=== PATIENT | female | born 1935 | race Caucasian/White ===

== ENCOUNTER 2016-05-30 10:37 | Emergency (ER) | payer MEDICARE ==
[2016-05-30 11:36] VITALS: BP 146/70
--- NOTE | 2016-05-30 13:02 | RAD ---
INDICATION: Left orbital injury. TECHNIQUE: 5 views of the orbits were obtained. FINDINGS: The bones are normal alignment. No fracture is seen. The sinuses appear clear. Several surgical clips project over the scalp in the right temporal region. IMPRESSION: NO EVIDENCE FOR FRACTURE.
--- NOTE | 2016-05-30 13:05 | UC ---
Hitesh Rollins Adam, scribed for [facility] on 05/30/16 at 1142 . Laceration HPI - HPI Summary HPI Summary: Nurse's Note: Around 1000 this morning pt sustained injury to corner of LEFT eye. States she was reaching above to grab something on shelf when metal tray fell down and hit corner of LEFT eye- no laceration noted. Denies any loss or change of vision, denies any LOC. Some bruising noted around LEFT eye. Has been icing injury on/off. Also c/o nausea on/off since the injury. In Room: Pt is a 80 year old female presenting with the eye injury described above. She states that she held onto the sink as she was struck by the metal tray and does not believe that she lost consciousness. She realized there was blood and her recommended that she have the injury examined. She currently c/o MARCUS and nausea. She denies diplopia. PMHx includes diverticulitis, arthritis, tonsillectomy, appendectomy, ovarian cysts, and bladder problems. She denies any FMHx. She last saw Dr. Walter (her PCP) prior to 05/20/16 when she had a sore throat (negative strep). - History Of Current Complaint Chief Complaint: UCGeneralIllness Stated Complaint: LAC AROUND EYE Hx Obtained From: Patient Laceration Location: Eye Mechanism Of Injury: Blunt Trauma Onset/Duration: Sudden Onset, Lasting Hours, Still Present Severity: Moderate Aggravating Factors: Nothing - Allergies/Home Medications Allergies/Adverse Reactions: Allergies Allergy/AdvReac Type Severity Reaction Status Date / Time Latex Allergy Intermediate Rash Verified 05/30/16 11:27 Home Medications: Home Medications Hydroxychloroquine TAB* [Plaquenil TAB*] 1 tab DAILY 05/30/16 [History Confirmed 05/30/16] Methotrexate TAB* 4 tab WEEKLY 05/30/16 [History Confirmed 05/30/16] PMH/Surg Hx/FS Hx/Imm Hx Endocrine History Of: Reports: Thyroid Disease - TOOK REPLACEMENTAS CHILD UNTIL OLDER TEEN, NOW OK Denies: Diabetes Cardiovascular History Of: Denies: Hypertension, Pacemaker/ICD Respiratory History Of: Denies: Asthma GI/ History Of: Denies: Renal Disease Cancer History Of: Reports: Breast Cancer - LEFT 2012 - Surgical History Surgical History: Yes Surgery Procedure, Year, and Place: 1940 TONSILLECTOMY:1953 OVARIAN CYST/ APPENDECTOMY:left breast lumpectomy OVARIAN [id number] BREAST BIOPSY benign-BILATERAL CATARACTSATTEMPTED Rt BREAST BIOPSY - UNDER US. Hernia repair 2016 - Family History Known Family History: Positive: Other - Breast CA (Mother) - Social History Occupation: Retired Lives: With Family - Alcohol Use: Occasionally Alcohol Amount: 1 X MONTH Substance Use Type: None Smoking Status (MU): Never Smoked Tobacco Review of Systems Skin: Bruising - Around left eye Gastrointestinal: Other - Nausea Neurological: Headache All Other Systems Reviewed And Are Negative: Yes Physical Exam Triage Information Reviewed: Yes Appearance: Well-Appearing, No Pain Distress, Well-Nourished Vital Signs: Initial Vital Signs Temp 97.6 F 05/30/16 11:30 Pulse 61 05/30/16 11:30 Resp 18 05/30/16 11:30 BP 146/70 05/30/16 11:30 Pulse Ox 100 05/30/16 11:30 Eyes: Positive: Other: - PERRLA, EOMI. 1.5 cm of ecchymosis on the lateral aspect of the upper lid. Swelling and ecchymosis on the lateral aspect below the lower lid. 2.5 cm abrasion lateral to the left eye over the zygoma. There is no limitation of upward gaze. There is tenderness over the zygoma inferiorly. There is no obv injury to the cornea or sclera or globe. No hyphema. Fundi are benign. ENT: Positive: Hearing grossly normal, Pharynx normal, TMs normal. Negative: Muffled/hoarse voice Neck: Positive: Supple, No Lymphadenopathy Respiratory: Positive: Chest non-tender, Lungs clear, Normal breath sounds, No respiratory distress Cardiovascular: Positive: RRR, No Murmur Abdomen Description: Positive: Nontender, No Organomegaly, Soft Bowel Sounds: Positive: Present Musculoskeletal: Positive: Strength Intact, ROM Intact Neurological: Positive: Alert Psychological: Positive: Age Appropriate Behavior Skin: Negative: rashes Diagnostics - Radiology ORBIT X-RAY Xray Interpretation: No Acute Changes Radiology Interpretation Completed By: Radiologist Laceration Course/Dx - Course/Dx Course Of Treatment: MDM: Patient sustained an injury to the lateral aspect of the left orbit. There is no evidence of eye injury or concussion, although the pt does have a MARCUS. X-Rays are negative for fracture. - Differential Dx - Laceration/Wound Differental Diagnoses: Other - Contusion vs eye injury vs concussion Provider Diagnoses: Contusion of the left lateral orbit. Note: I discussed with the patient and her the need for re-evaluation should her vision change or should any symptoms of concussion arise. Patient will rest, use ice to the area, and use ibuprofen or Excedrin. Discharge - Discharge Plan Condition: Stable Disposition: HOME Patient Education Materials: Head Injury (ED), Contusion in Adults (ED) Referrals: Kaushal Walter MD [Primary Care Provider] - Additional Instructions: WE DISCUSSED: 1. Watch for visual problems. 2. Your neurological examination was normal, but I have given you a head injury precaution page. 3. Expect increased bruising over the next few days. 4. Call us with any questions or concerns. 5. Your x ray was normal. The documentation as recorded by the Hitesh damon Adam accurately reflects the service I personally performed and the decisions made by me, Otto Banuelos MD.
== END 2016-05-30 13:36 | disposition home or self-care (01) ==
LOC: UCEAST 10:37
DX: S05.12XA Contusion of eyeball and orbital tissues, left eye, initial encounter (principal); W22.8XXA Striking against or struck by other objects, initial encounter; Y92.9 Unspecified place or not applicable
CPT/HCPCS: 70200; 99211; G0463

== ENCOUNTER 2018-10-07 09:51 | Emergency (ER) | payer MEDICARE ==
--- OUTSIDE RECORDS SUMMARY | 2018-10-07 10:16 | XMS REPORT | Continuity of Care Document ---
:1935 External Reference #:[id number] Author Name Rene Miller M.D. Address [address] [place] [address] Care Team Providers Name Role Phone Helen Alvarado MD/FACP Primary Care Physician Unavailable Payers Date Identification Numbers Payment Provider Subscriber Policy Number: [id number] Medicare - NGS Juanjose Koroma PayID: [id number] [address] [place] [address] Policy Number: [id number] [facility] Juanjose Mica [place] PayID: [id number] [address] [place] [address] Advance Directives Description No Information Available Problems Active Problems Provider Date Diverticulitis Onset: Breast cancer Onset: Rheumatoid arthritis Onset: Primary fibromyalgia syndrome Onset: Osteoarthritis Onset: Vitreous degeneration Anastasia Mesa O.D. Onset: 08/01/2015 Trichiasis of right eyelid Anastasia Mesa O.D. Onset: 08/01/2015 Vertigo Onset: Internal hordeolum Anastasia Mesa O.D. Onset: 08/06/2017 Senile entropion Rene Miller M.D. Onset: 09/12/2016 Tear film insufficiency Rene Miller M.D. Onset: 09/12/2016 Taking medication Rene Miller M.D. Onset: 09/12/2016 Pseudophakia Gabi Cox O.D. Onset: 06/16/2016 Migraine with typical aura Jovana StevensD. Onset: 06/16/2016 Chronic allergic conjunctivitis Anastasia Mesa O.D. Onset: 2015 Epiphora Anastasia Mesa O.D. Onset: 09/12/2015 Family History Date Family Member(s) Observation Comments Father No Current Problems Mother No Current Problems First Sister Glaucoma Second Sister Glaucoma Social History Type Date Description Comments Sex Unknown Marital Status Legal Status: Occupation Psychotherapist Work Status Retired ETOH Use Occasionally consumes alcohol Tobacco Use Start: Unknown Patient has never smoked Recreational Drug Use Denies Drug Use Smoking Status Reviewed: 09/23/18 Patient has never smoked Allergies, Adverse Reactions, Alerts Active Allergies Reaction Severity Comments Date NKDA 06/16/2016 Seasonal 08/01/2015 Medications Active Medications SIG Qnty Indications Ordering Provider Date Olopatadine HCL 1 drop both eyes 7.5ml Anastasia Mesa, 02/26/2018 0.2% every day for O.D. Solution itchy eyes Systane Preservative as needed Rene Miller, 09/11/2016 Free M.D. 0.4-0.3% Solution Vitamin D Unknown (Cholecalciferol) 1000Unit Capsules Calcium 600 Unknown 600mg Tablets Vitamin B-12 ER Unknown 1000mcg Tablets ER Ranitidine HCL Take One Tablet Unknown 150mg By Mouth Twice A Tablets Day Probiotic Unknown Capsules History Medications Pazeo 1 drop both 7.5ml H10.45 Anastasia Osei 2015 - 0.7% Solution eyes daily Ngozi Mesa 02/25/2018 Erythromycin prn 3.5units H02.052 Anastasia Osei 08/01/2015 - 5mg/GM Ointment Moshe O.DJoao 06/15/2016 Nystatin Swish And Unknown - 422239Tbtq/ML Swallow 5ML 08/05/2017 Suspension Four Times A Day Until Thrush Is Resolved Hydroxychloroquine Take One Unknown - Sulfate Tablet By 08/05/2017 200mg Tablets Mouth Daily For One Week Then Increase To One Table Folic Acid Unknown - 1mg Tablets 08/05/2017 Metronidazole Unknown - 0.75% Cream 12/04/2015 Diclofenac Sodium Unknown - 50mg Tablets 12/04/2015 Hydroxychloroquine Unknown - Sulfate 12/04/2015 200mg Tablets Azelastine HCL (Nasal) Unknown - 0.15% 03/25/2018 Solution Amoxicillin Unknown - 500mg Capsules 12/04/2015 Etodolac ER Unknown - 400mg Tablets ER 12/04/2015 24HR Gabapentin Unknown - 100mg Capsules 12/04/2015 Meloxicam Unknown - 7.5mg Tablets 12/04/2015 Methotrexate Unknown - 2.5mg Tablets 08/05/2017 Hydrocodone-Acetaminophen Unknown - 12/04/2015 5-325mg Tablets Meclizine HCL as needed Unknown - 25mg Tablets 03/25/2018 Fish Oil 1 by mouth Unknown - 1000mg Capsules every day 02/25/2018 Tamoxifen Citrate Unknown - 20mg Tablets 09/22/2018 Immunizations Description No Information Available Vital Signs Description No Information Available Results Description No Information Available Procedures Date Code Description Status 02/26/2018 76524 Est Patient Intermediate Exam Completed 09/17/2017 88444 Est Patient Comprehensive Exam Completed 08/06/2017 24334 Est Patient Intermediate Exam Completed 09/12/2016 05466 Est Patient Intermediate Exam Completed 06/16/2016 21278 Est Patient Comprehensive Exam Completed 2015 80745 Scanning Computerized Opthalmic Diagnostic Posterior Seg Completed Retina 2015 70870 Est Patient Intermediate Exam Completed 09/12/2015 25977 Est Patient Intermediate Exam Completed 08/01/2015 29370 Est Patient Intermediate Exam Completed 04/12/2014 01952 Est Patient Comprehensive Exam Completed 04/12/2014 86586 Determination Of Refractive State Completed 09/22/2012 52226 Dilation Og Lacrimal Punctum,W/Wo Completed 10/25/2011 47119 Determination Of Refractive State Completed 10/18/2011 75740 Est Patient Intermediate Exam Completed 02/16/2011 88250 Close Lacrimal Punctum, Plug Completed 01/31/2011 79691 Close Lacrimal Punctum, Plug Completed 12/19/2010 02058 Est Patient Intermediate Exam Completed 05/22/2010 63832 Visual Field Exam Extended Completed 05/01/2010 81697 Visual Field Exam Extended Completed 05/01/2010 53914 Est Patient Comprehensive Exam Completed 10/06/2009 59154 Remove Secondary Cataract, Laser (Yag) Completed 09/26/2009 08822 Remove Secondary Cataract, Laser (Yag) Completed 08/29/2009 83734 Est Patient Comprehensive Exam Completed 08/04/2008 66605 Determination Of Refractive State Completed 08/04/2008 65756 Est Patient Comprehensive Exam Completed 11/01/2006 46583 Determination Of Refractive State Completed 11/01/2006 23372 Est Patient Comprehensive Exam Completed 02/01/2006 56102 Est Patient Intermediate Exam Completed 02/01/2006 68705 Est Patient Intermediate Exam Completed 08/06/2005 74253 Pachymetry Completed 04/04/2005 99640 Extracapsular Cataract Extraction W/Intraocular Lens Completed 03/29/2005 92402 Ophthalmic Biometry Completed 03/28/2005 17821 Extracapsular Cataract Extraction W/Intraocular Lens Completed 03/19/2005 24840 Unlisted Procedure, Ophthalmological Completed 03/19/2005 66123 Ophthalmic Biometry Completed 03/09/2005 55874 Est Patient Comprehensive Exam Completed 01/14/2004 66032 Visual Field Exam Intermediate Completed 01/14/2004 80908 Determination Of Refractive State Completed 01/14/2004 09106 Est Patient Comprehensive Exam Completed 12/27/2003 31346 Patient No Show For Appt Completed Encounters Type Date Location Provider Dx Diagnosis Office Visit 03/26/2018 Anastasia Goss Farnaz Moshe, 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 Syndrome) Office Visit 05/11/2011 10:00a Keith Bobo 375.15 Dry Eyes (Madeleine Adhikari MD, berkley Jackson O.D. Syndrome) Office Visit 03/28/2011 7:00p Keith Bobo 379.21 Vitreous MD Onofre, berkley Jackson O.D. Degeneration Office Visit 02/28/2011 7:10p Keith Bobo 379.21 Vitreous MD Onofre, berkley Jackson O.D. Degeneration Office Visit 02/16/2011 8:40a Keith Bobo 370.8 Keratitis Other MD Onofre, berkley Jackson O.D. 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 Forms 370.8 Keratitis Other Forms Office Visit 01/19/2011 9:10a Keith Bobo 373.00 Blepharitis Unspec MD Adhikari pc Stockwin, O.D. Office Visit 12/29/2010 1:20p Keith Bobo 373.00 Blepharitis Unspec MD Adhikari pc Stockwin, O.D. Office Visit 12/25/2010 3:10p Keith Bobo 373.00 Blepharitis Unspec MD Adhikari pc Stockwin, O.D. Office Visit 05/22/2010 2:00p Keith Bobo 373.00 Blepharitis Unspec MD Adhikari pc Stockwin, O.D. 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 Office Visit 05/14/2005 12:00p Keith Bobo 372.72 Conjunctival MD Adhikari pc Arleo, M.D. Hemorrhage Plan of Treatment 09/23/2018 - Rene Miller M.D.H43.813 Vitreous degeneration, bilateralComments:Smoking can increase the risk of developing or worsening any eye related disease, as well as affect your overall health. If you are a smoker , we strongly recommend that you quit.If you are not a smoker, we strongly recommend that you do not start. You have a Posterior Vitreous Detachment. If you have any changes in your floaters or flashing lights, please contact this office.Follow up:2 Year Follow Up DFE You can expect to have your eyes dilated at your next visit. If Dr. Miller orders any additional testing, it may require extra time. We recommend that you bring sunglasses, as dilation drops often make you light sensitive until they wear off. We always recommend you bring someone to drive you home if you are uncomfortable driving with your eyes dilated. If you have any questions before your next visit, feel free to call our office at .H02.032 Senile entropion of right lower eyelidComments:Your right lower eyelid is turning inward. Use artifical tears to alleviate any symptoms you may have. CONTINUE TO USE THE SYSTANE PRESERVATIVE FREE DROP DIRECTED.H10.45 Other chronic allergic conjunctivitisComments:You have Allergic Conjunctivitis. Your symptoms can be aggravated by rubbing your eyes. Dr. Miller recommends you use tear drops and a cold compress to alleviate your symptoms. Dr. Miller may also prescribe medication if necessary. USE AN OVER THE COUNTER ALLERGY EYE DROPS. THE BRAND I RECOMMEND IS ZADITOR. USE THE EYE DROPS 1 DROP TWICE A DAY TO BOTH EYES FOR TWO WEEKS THEN DISCONTINUE. IF YOUR SYMPTOMS RETURN AFTER STOPPING THE ALLERGY EYE DROP, YOU CAN RESTART THE DROPS DIRECTED. USE WARM COMPRESSES(RICE BAG) FOR 3-5 MINUTES AT NIGHT BEFORE BED.
--- NOTE | 2018-10-07 10:48 | ED ---
Head Injury - HPI Summary HPI Summary: Patient is an otherwise healthy 82-year-old female who presents to the ED with a mechanical fall which occurred last evening. She states she fell forward injuring her for head. Since that time, she has had increasing fatigue and headache. She denies the use of blood thinners. She also hit the left knee, but has been ambulating well and does not feel this is fractured. She denies any other symptoms. Denies any memory loss, confusion, visual changes or neck pain. She states with certain rotations about the neck, she is endorsing worsening headache. Headache is mainly located to the frontal region that radiates to the occipital area, has been diffuse and intermittent. She has not taken medications for relief. - History Of Current Complaint Chief Complaint: EDHeadInjury Stated Complaint: FALL HEAD LAC PER PT Time Seen by Provider: 10/07/18 10:33 Hx Obtained From: Patient Onset/Duration: Started Hours Ago Onset of Pain: Minutes Severity Currently: Moderate Severity Initially: Moderate Pain Intensity: 4 Pain Scale Used: 0-10 Numeric Location of Head Injury: Frontal Location: Discrete At: - frontal Aggravating Factor(s): Movement Alleviating Factor(s): Rest, Ice Associated Signs And Symptoms: LOC (Time In Secs./Mins/Hrs) - unknown - Risk Factors SDH Risk Factor: Negative - Allergies/Home Medications Allergies/Adverse Reactions: Allergies Allergy/AdvReac Type Severity Reaction Status Date / Time latex Allergy Rash Verified 10/07/18 10:06 Ocihqws-Aal-Tgm Reductase Allergy GI Upset Verified 10/07/18 10:06 Inhibitor Home Medications: Home Medications Cyanocobalamin TAB* [Vitamin B12 TAB*] 1,000 mcg PO DAILY 10/07/18 [History Confirmed 10/07/18] L.acidoph,Paracasei, B.lactis [Probiotic] 1 each PO DAILY 10/07/18 [History Confirmed 10/07/18] Meclizine TAB* [Antivert 12.5 TAB*] 12.5 mg PO TID PRN 10/07/18 [History Confirmed 10/07/18] Tramadol HCl 50 mg PO BID PRN 10/07/18 [History Confirmed 10/07/18] raNITIdine HCl [Ranitidine HCl] 150 mg PO DAILY 10/07/18 [History Confirmed ] PMH/Surg Hx/FS Hx/Imm Hx Previously Healthy: Yes Endocrine/Hematology History: Reports: Hx Systemic Lupus Erythematosus - ? dx per pt, Hx Thyroid Disease - TOOK REPLACEMENTAS CHILD UNTIL OLDER TEEN, NOW OK Denies: Hx Diabetes Cardiovascular History: Reports: Hx Hypercholesterolemia Denies: Hx Hypertension, Hx Pacemaker/ICD Respiratory History: Denies: Hx Asthma GI History: Reports: Hx Gastroesophageal Reflux Disease - HX OF NO MEDS, Hx Hiatal Hernia - HX OF NO MEDS NOW, Other GI Disorders - diverticulitis History: Reports: Other Problems/Disorders - urgency,slow sm amt Denies: Hx Renal Disease Musculoskeletal History: Reports: Hx Arthritis - RHEUMOTOID AND OSTEO NO TX PRESENTLY, Hx Rheumatoid Arthritis, Other Musculoskeletal History - OSTEO & RHEUMITOID ARTHRITIS, FIBROMYALGIA Denies: Hx Osteoporosis Sensory History: Reports: Hx Cataracts - CATARACT REMOVED 10 YEARS, WITH IOL, Hx Contacts or Glasses Denies: Hx Hearing Aid Opthamlomology History: Reports: Hx Cataracts - CATARACT REMOVED 10 YEARS, WITH IOL, Hx Contacts or Glasses Psychiatric History: Denies: Hx Panic Disorder - Cancer History Cancer Type, Location and Year: Lt BREAST CANCER - IN REMISSION AT THIS TIME - 03/2018 Hx Chemotherapy: No - PO TAMOXIFEN Hx Radiation Therapy: Yes - BREAST - Surgical History Surgery Procedure, Year, and Place: 1940 TONSILLECTOMY: 1953 OVARIAN CYST/ APPENDECTOMY AND 1972 OVARIAN CYST. left breast lumpectomy 07/2012. 1985 RT BREAST BIOPSY benign. BILATERAL CATARACTS. ATTEMPTED Rt BREAST BIOPSY - UNDER US. Hernia repair 2015 Hx Anesthesia Reactions: No - Immunization History Hx Pertussis Vaccination: No Immunizations Up to Date: Yes Infectious Disease History: No Infectious Disease History: Reports: Hx Shingles Denies: Traveled Outside the [place] in Last 30 Days - Family History Known Family History: Positive: Other - Breast CA (Mother) - Social History Occupation: Unemployed Lives: With Family Alcohol Use: None Alcohol Amount: 1 X MONTH Hx Substance Use: No Substance Use Type: Reports: None Hx Tobacco Use: No Smoking Status (MU): Never Smoked Tobacco Review of Systems Constitutional: Negative Negative: Fever, Chills, Fatigue, Skin Diaphoresis Negative: Palpitations, Chest Pain Negative: Shortness Of Breath, Cough Genitourinary: Negative Positive: no symptoms reported, see HPI Negative: Arthralgia, Myalgia Positive: Other - abrasion with ecchymosis to the forehead. Negative: Rash, Bruising Positive: Headache All Other Systems Reviewed And Are Negative: Yes Physical Exam Triage Information Reviewed: Yes Vital Signs On Initial Exam: Initial Vitals Temp Pulse Resp BP Pulse Ox 98.1 F 75 17 133/71 98 10/07/18 09:58 10/07/18 09:58 10/07/18 09:58 10/07/18 09:58 10/07/18 09:58 Vital Signs Reviewed: Yes Appearance: Positive: Ill-Appearing, Pain Distress, Signs of Trauma - ecchymosis and abrasion to the forehead Skin: Positive: Warm, Skin Color Reflects Adequate Perfusion Head/Face: Positive: Other - abrasion/forehead Eyes: Positive: EOMI, BETO, Conjunctiva Clear Neck: Positive: Supple, No Lymphadenopathy Respiratory/Lung Sounds: Positive: Clear to Auscultation, Breath Sounds Present Cardiovascular: Positive: RRR, Pulses are Symmetrical in both Upper and Lower Extremities Musculoskeletal: Positive: Normal, Strength/ROM Intact Neurological: Positive: Speech Normal Psychiatric: Positive: Normal, Affect/Mood Appropriate AVPU Assessment: Alert Diagnostics - Vital Signs Vital Signs Temp Pulse Resp BP Pulse Ox 10/07/18 09:58 98.1 F 75 17 133/71 98 - Laboratory Result Diagrams: 10/07/18 10:38 10/07/18 10:38 Lab Statement: Any lab studies that have been ordered have been reviewed, and results considered in the medical decision making process. Head Injury Course/Dx Course Of Treatment: Patient is evaluated for head injury. There is a 3 cm in diameter circular abrasion with ecchymosis to the forehead. Denies any neuro symptoms. On physical examination, patient appears otherwise well, in no 3, neurologically intact, denies any weakness. There is some ecchymosis to the left knee, however she is able to extend and flex without discomfort. She declines x-ray at this time, although this is offered. She states if symptoms worsen, she will follow-up with Dr. Vasquez. She denies blood thinners. Labs obtained she states she may have been weak just prior to the fall, but cannot recall. CT brain obtained: She is no intracranial after maladies. CT cervical spine obtained which is normal for any acute findings. Discussed lab results which are WNL as well as CT results with patient. She is diagnosed with head injury and possible concussion. She understands to take Tylenol and ibuprofen intermittently and brain rest. She'll follow-up with her PCP. Patient states she feels okay with discharge at this time. - Diagnoses Differential Diagnosis/HQI/PQRI: Concussion Without LOC, Contusion Provider Diagnoses: Contusion, Head injury Discharge - Sign-Out/Discharge Documenting (check all that apply): Patient Departure Patient Received Moderate/Deep Sedation with Procedure: No - Discharge Plan Condition: Good Disposition: HOME Patient Education Materials: Concussion (ED), Head Injury (ED) Referrals: Helen Alvarado MD [Primary Care Provider] - Additional Instructions: You may have a mild concussion depending on your symptoms If you develop worsening or changing symptoms - return to the ED immediately Tylenol and ibuprofen - use intermittently every 3 hours - Billing Disposition and Condition Condition: GOOD Disposition: Home
[2018-10-07 10:54] LABS: Hematocrit 40 % (35-47); Hemoglobin 13.4 g/dL (12.0-16.0); Mean Corpuscular HGB Conc 34 g/dL (31-36); Mean Corpuscular Hemoglobin 32 pg (27-31); Mean Corpuscular Volume 93 fL (80-97); Mean Platelet Volume 7.6 fL (7.4-10.4); Platelet Count 286 10^3/uL (150-450); Red Blood Count 4.25 10^6 /uL (3.70-4.87); Red Cell Distribution Width 14 % (10.5-15); White Blood Count 5.9 10^3/uL (3.5-10.8)
[2018-10-07 11:30] LABS: BUN/Creatinine Ratio 18.3 (8-20); Calcium 9.4 mg/dL (8.6-10.3); EGFR African American 116.4 (>60); EGFR Non-African American 96.2 (>60); Potassium 3.9 mmol/L (3.5-5.0)
[2018-10-07] MEDS ORDERED: Tetan/Diph/Pertus SYR(Tdap)* 0.5 ML SYR(BOOSTRIX) use SYR IM ONE (12:03)
[2018-10-07 12:18] VITALS: BP 141/68
== END 2018-10-07 12:17 | disposition home or self-care (01) ==
LOC: ED 09:51
DX: S00.93XA Contusion of unspecified part of head, initial encounter (principal); W18.30XA Fall on same level, unspecified, initial encounter; Y92.9 Unspecified place or not applicable; E78.00 Pure hypercholesterolemia, unspecified; K21.9 Gastro-esophageal reflux disease without esophagitis; Z85.3 Personal history of malignant neoplasm of breast
CPT/HCPCS: 36415; 70450; 72125; 80048; 85027; 85610; 90715; 96372; 99282

== ENCOUNTER 2022-02-22 10:20 | Observation (INO) ==
[~2022-02-22 10:20] MED LIST: Buffered Lidocaine 1% SYRIN 1 ml INTRADERM ONE; Lactated Ringers 1000 ml BAG 1,000 ML IV SCH; Naloxone 0.4 mg VIAL 0.4 mg/ml 1 ml VIAL IV PRN; Ondansetron 4 mg VIAL 2 MG/ML 2 ml VIAL IV PRN; fentaNYL 100 mcg/2 ml 50 MCG/ML VIAL IV PRN
[2022-02-22] MEDS ORDERED: ceFAZolin 2 GM in NS PREMIX 2 GM/100 ML BAG IVPB ONE (10:46)
[2022-02-22] MEDS ORDERED: ROPIVACAINE 5 MG/ML 30 ML BTL (0.5%) ONE ×2 (11:53→12:15)
[2022-02-22] MEDS ORDERED: Lidocaine 2% PF 5 ML VIAL ONE (11:53)
[2022-02-22] MEDS ORDERED: Dexamethasone IV 4 MG/ML VIAL 1 ml VIAL ONE (11:53)
[2022-02-22] MEDS ORDERED: Propofol 10 MG/ML 20 ML BTL ONE (12:42)
[2022-02-22] MEDS ORDERED: fentaNYL 100 mcg/2 ml 50 MCG/ML VIAL ONE (12:42)
[2022-02-22] MEDS ORDERED: Phenylephrine 40 mcg/mL 10mL (400mcg) SYRINGE ONE (14:10)
[2022-02-22] MEDS ORDERED: Magnesium Hydroxide LIQ 30 ML UDC PO PRN (14:49)
[2022-02-22] MEDS ORDERED: Lactulose 30 ml UDC PO PRN (14:49)
[2022-02-22] MEDS ORDERED: Ondansetron ODT 4 mg TAB 4 MG TAB PO PRN (14:49)
[2022-02-22] MEDS ORDERED: Ondansetron 4 mg VIAL 2 MG/ML 2 ml VIAL IV PRN (14:49)
[2022-02-22] MEDS ORDERED: Morphine 2 MG/ML SYRINGE IV PRN (14:49)
[2022-02-22] MEDS ORDERED: Lactated Ringers 1000 ml BAG 1,000 ML IV SCH (15:00)
[2022-02-22] MEDS: ceFAZolin 1 GM ADVAN 1 GM in NS 0.9% 50 ML 50 ML IVPB SCH (20:08)
[2022-02-22] MEDS: Magnesium Hydroxide LIQ 30 ML UDC PO SCH (20:09)
[2022-02-23 06:34] LABS: Hematocrit 31 % (35-47); Hemoglobin 10.9 g/dL (12.0-16.0); Mean Platelet Volume 7.8 fL (7.4-10.4); Platelet Count 218 10^3/uL (150-450)
[2022-02-23] MEDS: ceFAZolin 1 GM ADVAN 1 GM in NS 0.9% 50 ML 50 ML IVPB SCH ×2 (06:49→13:49)
[2022-02-23 07:27] LABS: Calcium 8.3 mg/dL (8.6-10.3); Potassium 4.4 mmol/L (3.5-5.0); eGFR CKD-EPI 89.6 (>60)
[2022-02-23] MEDS ORDERED: Vitamin THERAPEUTIC TAB PO SCH (09:00)
[2022-02-23] MEDS: Magnesium Hydroxide LIQ 30 ML UDC PO SCH (09:22)
[2022-02-23 11:11] VITALS: BP 116/66
[2022-02-23] MEDS ORDERED: Cholecalciferol (VIT D3) 1,000 unit TAB PO SCH (13:00)
== END 2022-02-23 16:05 | disposition home or self-care (01) ==
LOC: INTOOBSV 10:20 → AA 10:20 → SSU 14:49
PROVIDERS: ADMIT Orthopaedic Surgery Adult Reconstructive Orthopaedic Surgery; ATTEND Orthopaedic Surgery Adult Reconstructive Orthopaedic Surgery

== ENCOUNTER 2023-09-28 09:52 | Observation (INO) ==
[2023-09-28] MEDS: Ondansetron 4 mg VIAL 2 MG/ML 2 ml VIAL IV ONE (11:21)
[2023-09-28] MEDS: Acetaminophen IV 1 GM/100ML 1,000 MG/100 ML BAG IV ONE (11:23)
[2023-09-28 11:33] LABS: ABS Eosinophils 0.3 10^3/uL (0.0-0.5); ABS Lymphocytes 0.9 10^3/uL (1.0-4.8); ABS Monocytes 0.6 10^3/uL (0.0-0.9); ABS Neutrophils 5.7 10^3/uL (1.5-7.6); ABS Nucleated RBC 0.01 10^3/ul; Eosinophil % 3.5 %; Hematocrit 40.3 % (35-45); Lymphocyte % 11.7 %; Mean Corpuscular Hemoglobin 33.2 pg (27-33); Mean Corpuscular Hgb Conc 34.6 g/dL (31-36); Mean Corpuscular Volume 96.1 fL (80-97); Mean Platelet Volume 7.1 fL (7.5-11.2); Nucleated Red Blood Cells % 0.1 %/100WBC (0.0-0.8); Platelet Count 268 10^3/uL (150-450); Red Cell Distribution Width 13.7 % (12-17); White Blood Count 7.4 10^3/uL (3.8-11.8)
[2023-09-28 12:30] LABS: Albumin/Globulin Ratio 1.5 (1-3); Calcium 9.6 mg/dL (8.6-10.3); Creatinine, Serum 0.63 mg/dL (0.51-0.95); Globulin 2.7 g/dL (2-4); Magnesium 2.2 mg/dL (1.9-2.7); TSH Ultra Thyroid Stim Horm 1.96 mcIU/mL (0.34-5.60); Total Protein 6.7 g/dL (6.4-8.9); eGFR CKD-EPI 86.9 (>60)
[2023-09-28 12:46] LABS: Potassium 4.2 mmol/L (3.5-5.0)
[2023-09-28 12:54] LABS: High Sensitivity Troponin 1 Hr 5 pg/mL (<15)
[2023-09-28] MEDS: Iohexol 350 (CONTRAST) 500 ML MDV IV ONE (13:01)
[2023-09-28 18:41] LABS: Urine Appearance Clear; Urine Bilirubin Negative (Negative); Urine Blood Negative (Negative); Urine Color Light-Yellow; Urine Glucose Negative (Negative); Urine Ketones Trace (Negative); Urine Nitrite Negative (Negative); Urine Protein Negative (Negative); Urine Specific Gravity 1.047 (1.002-1.030); Urine Urobilinogen Negative (Negative); Urine pH 7.5 (5.0-8.0)
[2023-09-28] MEDS: Enoxaparin 40 MG/0.4 ML SYR SUBCUT SCH (20:55)
[2023-09-29 05:59] LABS: ABS Basophils 0.1 10^3/uL (0.0-0.1); ABS Eosinophils 0.4 10^3/uL (0.0-0.5); ABS Lymphocytes 1.5 10^3/uL (1.0-4.8); ABS Monocytes 0.5 10^3/uL (0.0-0.9); ABS Neutrophils 2.8 10^3/uL (1.5-7.6); ABS Nucleated RBC 0.01 10^3/ul; Eosinophil % 6.8 %; Hematocrit 36.8 % (35-45); Hemoglobin 12.8 g/dL (11.5-14.3); Mean Corpuscular Hemoglobin 33.2 pg (27-33); Mean Corpuscular Hgb Conc 34.7 g/dL (31-36); Mean Corpuscular Volume 95.7 fL (80-97); Mean Platelet Volume 7.3 fL (7.5-11.2); Nucleated Red Blood Cells % 0.1 %/100WBC (0.0-0.8); Platelet Count 242 10^3/uL (150-450); Red Blood Count 3.85 10^6/uL (3.63-4.92); Red Cell Distribution Width 13.8 % (12-17); White Blood Count 5.3 10^3/uL (3.8-11.8)
[2023-09-29 06:09] LABS: Calcium 8.7 mg/dL (8.6-10.3); Creatinine, Serum 0.56 mg/dL (0.51-0.95); Potassium 4.3 mmol/L (3.5-5.0); eGFR CKD-EPI 89.4 (>60)
[2023-09-29 09:17] LABS: HDL Cholesterol 87.4 mg/dL
[2023-09-29 09:42] VITALS: BP 135/66
== END 2023-09-29 12:45 | disposition home or self-care (01) ==
LOC: EDHOLD 09:52 → ED 09:52 → SUATTDRO 15:34 → MEDTELE 18:13
PROVIDERS: ADMIT Student in an Organized Health Care Education/Training Program; ATTEND Hospitalist